=== PATIENT | female | born 1960 | race Caucasian/White ===

== ENCOUNTER 2017-01-30 11:42 | Inpatient (IN) | payer BC ==
[~2017-01-30] VITALS: Ht 170.2 cm; Wt 57.2 kg
[~2017-01-30 11:42] MED LIST: BISHYD2.5 PO; BUSP10 PO; CHLO25 PO; CLON.5; HYDACE5 PO; METO50ER PO; OXYACE5T PO; RAMI5 PO; RXHYDACE PO; RXPROM25 PO; SILSUL1TC TOP; ZIAC; ZOLP10
[2017-01-30 12:50] LABS: Calcium, Ionized (POC) 0.98 mmol/L (1.10-1.46); Chloride (POC) 88 mmol/L (98-108); Creatinine (POC) 3.7 mg/dL (0.6-1.0); Glucose (ISTAT POC) 185 mg/dL (70-99); Hemoglobin (POC) 17.7 g/dL (12.0-16.0); Potassium (POC) 7.5 mmol/L (3.5-5.5); Sodium (POC) 117 mmol/L (135-148); Total CO2 (POC) 21 mmol/L (21-32)
[2017-01-30 12:57] LABS: Hematocrit 44.5 % (33.0-51.0); Mean Corpuscular HGB 30.7 pg (26.0-34.0); Mean Corpuscular Volume 85 fL (80-100); Mean Platelet Volume 9.9 fL (9.1-12.4); Platelet Count 443 K/mm3 (150-400); RDW Coefficient Variation 12.4 % (11.7-14.2); RDW Standard Deviation 38.2 fL (35.1-46.3); Red Blood Cell Count 5.21 M/mm3 (3.80-5.20); White Blood Cell Count 34.55 K/mm3 (4.00-11.30)
[2017-01-30 13:13] LABS: CPK Creatine Kinase 74 U/L (26-193); Ethanol (Alcohol), Blood, Med <3 mg/dL; Magnesium, Blood 3.2 mg/dL (1.6-2.4); Troponin I <0.015 ng/mL (0.000-0.040)
[2017-01-30 13:18] LABS: Alanine Aminotransfer (ALT/SGP 32 U/L (12-78); Albumin, Blood 2.6 g/dL (3.4-5.0); Albumin/Globulin Ratio 0.5 (0.8-1.8); Alk Phos 176 U/L (50-136); Anion Gap 16 mmol/L (6-16); Aspartate Aminotrans (AST/SGOT 29 U/L (12-37); Bilirubin, Total 0.6 mg/dL (0.1-1.0); Blood Urea Nitrogen 131 mg/dL (8-24); Bun/Creatinine Ratio 45.6 (12.0-20.0); CO2, Blood 19 mmol/L (21-32); Calcium, Blood 9.5 mg/dL (8.5-10.1); Chloride, Blood 83 mmol/L (98-108); Creatinine, Blood 2.87 mg/dL (0.40-1.00); Globulin, Blood 5.7 g/dL (2.2-4.0); Glomerular Filtration Rate 18 (60-); Glucose, Blood 183 mg/dL (70-99); Potassium, Blood 6.1 mmol/L (3.5-5.5); Sodium, Blood 118 mmol/L (136-145); Total Protein, Blood 8.3 g/dL (6.4-8.2)
[2017-01-30 13:21] LABS: BAND PERCENT MAN 38 % (0-8); BASOPHILS PERCENT MAN 0 % (0-2); EOSINOPHILS ABSOLUTE MAN 0.34 K/mm3 (0.00-0.68); EOSINOPHILS PERCENT MAN 1 % (0-6); LYMPHOCYTES ABSOLUTE MAN 1.03 K/mm3 (0.84-5.20); LYMPHOCYTES PERCENT MAN 3 % (21-46); MONOCYTES ABSOLUTE MAN 1.72 K/mm3 (0.16-1.47); MONOCYTES PERCENT MAN 5 % (4-13); MYELOCYTE ABSOLUTE MAN 1.72 K/mm3 (0.00-0.00); MYELOCYTE PERCENT MAN 5 % (0-0); NEUTROPHILS ABSOLUTE MAN 29.71 K/mm3 (1.96-9.15); SEG NEUTROPHILS PERCENT MAN 48 % (41-73); TOTAL CELLS COUNTED 100
[2017-01-30 14:10] LABS: Calcium, Ionized (POC) 0.99 mmol/L (1.10-1.46); Chloride (POC) 91 mmol/L (98-108); Creatinine (POC) 3.7 mg/dL (0.6-1.0); Glucose (ISTAT POC) 163 mg/dL (70-99); Hemoglobin (POC) 17.7 g/dL (12.0-16.0); Potassium (POC) 7.1 mmol/L (3.5-5.5); Sodium (POC) 117 mmol/L (135-148); Total CO2 (POC) 21 mmol/L (21-32)
[2017-01-30 14:13] LABS: Source, Urine Clean Catch
[2017-01-30 14:17] LABS: Bilirubin, Urine Neg (Neg); Blood, Urine Neg (Neg); Glucose Qualitative, Urine 4+ (Neg); Ketones, Urine Neg (Neg); Leukocyte Esterase, Urine Neg (Neg); Nitrite, Urine Neg (Neg); Protein, Urine Neg (Neg); Specific Gravity, Urine 1.015 (1.003-1.022); Urobilinogen, Urine NORM (Normal)
[2017-01-30 14:20] LABS: Appearance, Urine Clear (Clear); Color, Urine Yellow (P-Yellow)
[2017-01-30 15:26] LABS: Bun/Creatinine Ratio 47.7 (12.0-20.0); Calcium, Blood 9.8 mg/dL (8.5-10.1); Creatinine, Blood 2.77 mg/dL (0.40-1.00); Potassium, Blood 6.3 mmol/L (3.5-5.5)
--- NOTE | 2017-01-30 22:34 | NUR ---
ASSUMING CARE RECEIVED PT REPORT AT BEDSIDE FROM WILLIAMS KESSLER PT IS ADMITTED DUE TO ALTERED MENTAL STATUS, AND ALCOHOL WITHDRAWAL. PT IS AROUSABLE AND ABLE TO FOLLOW COMMANDS. PT IS CONFUSED AND HAS VERY POOR SHORT TERM MEMORY AND IS A POOR HISTORIAN. PT IS A NEW ADMIT THAT ARRIVED JUST PROIOR TO SHIFT CHANGE. ADMISSION HX, AND MED REC NOT DONE PT IS UNABLE TO PROVIDE INFORMATION AT THIS TIME. PT HAS EXTENSIVE EXCORIATIONS, SKIN BREAKDOWN AND POSSIBLE PRESSURE ULCERS TO THE BACK, BUTTOCKS, COCCYX, AND BACK OF THE LEGS. PT REPORTS THAT SHE HAS BEEN IN BED DRINKING AND HAS NOT GOTTEN OUT OF BED FOR APPROX 3 WEEKS. PT APPEARS TO BE VERY WEAK AND DECONDITIONED AT THIS TIME. PT STATED THAT SHE WAS ABLE TO MOVE SELF IN BED AND AMBULATE PRIOR TO STAYING IN BED FOR EXTENDED AMOUNT OF TIME. ORDER FOR SILVADINE CREAM RECEIVED. WOUNDS CLEANED AND SILVADINE CREAM APPLIED. MEPILEX DRESSINGS APPLIED TO LEFT ELBOW AND RT FOOT/HEEL/ANKLE. PT HAS AVELAR IN PLACE, PLACED IN THE ER PER REPORT. AVELAR IS CURRENTLY PATENT AND DRAINING CLEAR YELLOW URINE AT THIS TIME. PT HAS A PICC LINE THAT WAS PLACED BY WILLIAMS KESSLER AT THE TIME OF SHIFT CHANGE. PT HAS AN IV IN EACH AC. LEFT AC IV DC'D IT WAS LEAKING. PT RECIEVING NS AT 200ML/HR. RATE CHANGED TO 125ML/HR PER NEW ORDER. ASSUMING CARE OF PT AT THE TIME OF SHIFT REPORT/SHIFT CHANGE AT APPROX 1900. WILL CONTINUE TO MONITOR.
--- NOTE | 2017-01-30 23:30 | NUR ---
DR. KESHAWN LIAO WAS CALLED TO CLARIFY ORDERS FOR PT. DR. LIAO WAS INFORMED OF PT STATUS, CONDITION, AND LABS. RECIEVED ORDERS FOR BMP LAB DRAW TO BE DONE NOW AND ORDERS FOR CMP, CBC, AND LACTIC ACID TO BE DRAWN IN THE AM. DR. LIAO WAS INFORMED THAT PT IS RECEIVING NS AT 125ML/HR. DR. LIAO GAVE INSTRUCTIONS TO CONTINUE FLUIDS AT CURRENT RATE. WILL ENTER RECIEVED ORDERS. WILL CONTINUE TO MONITOR.
[2017-01-31 00:23] LABS: Bun/Creatinine Ratio 58.3 (12.0-20.0); Calcium, Blood 8.2 mg/dL (8.5-10.1); Creatinine, Blood 1.44 mg/dL (0.40-1.00)
--- NOTE | 2017-01-31 02:51 | NUR ---
WOUND CARE PT WAS REPOSITIONED AT THIS TIME. PT SILVADINE WAS REAPPLIED AND WOUND CARE PERFORMED. PT CONTINUES TO HAVE BLOODY DRAINAGE FROM WOUND ACCROS BACK. PT POSITIONED TO RELIEVE PRESSURE TO AREA. PT WAS CLEANED WITH A FULL BED BATH. PT HAIR WAS CLEANED AND COMBED. PT HAIR WAS VERY MATTED AND HAD DEBRIS IN IT. PT HAD A LARGE AMOUNT OF BLACK/BROWN PASTY MATERIAL UNDER HER NAILS. NAIL AREA AND CLEANING PERFORMED. WILL CONITNUE TO MONITOR
[2017-01-31 04:21] LABS: Hematocrit 36.7 % (33.0-51.0); Hemoglobin 12.8 g/dL (11.5-16.0); Mean Corpuscular HGB 30.3 pg (26.0-34.0); Mean Corpuscular HGB Conc 34.9 g/dL (31.5-36.5); Mean Corpuscular Volume 87 fL (80-100); Mean Platelet Volume 9.2 fL (9.1-12.4); Platelet Count 386 K/mm3 (150-400); RDW Coefficient Variation 12.7 % (11.7-14.2); RDW Standard Deviation 40.3 fL (35.1-46.3); Red Blood Cell Count 4.23 M/mm3 (3.80-5.20)
[2017-01-31 04:42] LABS: BAND PERCENT MAN 27 % (0-8); BASOPHILS PERCENT MAN 0 % (0-2); EOSINOPHILS PERCENT MAN 0 % (0-6); LYMPHOCYTES PERCENT MAN 7 % (21-46); METAMYELOCYTE ABSOLUTE MAN 1.22 K/mm3 (0.00-0.00); METAMYELOCYTE PERCENT MAN 5 % (0-0); MONOCYTES ABSOLUTE MAN 1.22 K/mm3 (0.16-1.47); MONOCYTES PERCENT MAN 5 % (4-13); MYELOCYTE ABSOLUTE MAN 1.22 K/mm3 (0.00-0.00); MYELOCYTE PERCENT MAN 5 % (0-0); NEUTROPHILS ABSOLUTE MAN 19.03 K/mm3 (1.96-9.15); SEG NEUTROPHILS PERCENT MAN 51 % (41-73); TOTAL CELLS COUNTED 100
[2017-01-31 04:52] LABS: Alanine Aminotransfer (ALT/SGP 19 U/L (12-78); Albumin, Blood 1.9 g/dL (3.4-5.0); Albumin/Globulin Ratio 0.5 (0.8-1.8); Alk Phos 117 U/L (50-136); Anion Gap 9 mmol/L (6-16); Aspartate Aminotrans (AST/SGOT 22 U/L (12-37); Bilirubin, Total 0.5 mg/dL (0.1-1.0); Blood Urea Nitrogen 66 mg/dL (8-24); Bun/Creatinine Ratio 56.4 (12.0-20.0); CO2, Blood 22 mmol/L (21-32); Calcium, Blood 8.1 mg/dL (8.5-10.1); Chloride, Blood 105 mmol/L (98-108); Creatinine, Blood 1.17 mg/dL (0.40-1.00); Globulin, Blood 4.1 g/dL (2.2-4.0); Glomerular Filtration Rate 51 (60-); Glucose, Blood 95 mg/dL (70-99); Potassium, Blood 3.8 mmol/L (3.5-5.5); Sodium, Blood 136 mmol/L (136-145); Vancomycin, Random 9.4 ug/mL
--- NOTE | 2017-01-31 06:17 | NUR ---
SHIFT SUMMARY NTOE PT HAS HAD WOUND CARE DONE X3 TIMES THROUGH THE SHIFT. EACH TIME SILVADINE CREAM WAS APPLIED TO WOUND COVERING PTS BACK DOWN TO UPPER THIGHS. PT CONTINUES TO HAVE BLOODY DRAINAGE FROM WOUNDS ON BACK. PICTURES OF PT WOUNDS WERE TAKEN AND PLACED IN CHART. PT REMAINS VERY CONFUSED. PT WAS PROVIDED ATIVAN ONCE FOR A CIWA OF 16 AT THE START OF THE SHIFT. PT OTHER CIWA SCORES WERE APPROX 8 AND 9. AFTER INITIAL ASSESSMENT PT WOULD ONLY ANSWER VERY FEW QUESTIONS, AND MOST COMMUNICATION FROM PT WAS PT ASKING FOR ICE CHIPS. PT WAS NOT PROVIDED ANY ICE CHIPS AFTER APPROX 2200 PT BECAME TOO SOMNOLENT. PT CONTINUES ON NS AT 125/HR. AT THIS TIME PT IS CURRENTLY RECIEVING ZOSYN AT 12.5ML/HR A PIGGYBACK. NO CALLS OR VISITORS FOR/CONCERNING PT OVERNIGHT. PT ADMIT HX AND MED REC NOT DONE PT IS CURRENTLY UNABLE TO PROVIDE RELIABLE ANSWERS. PT CONTINUES TO HAVE AVELAR CATH IN PLACE. PT HAS HAD APPROX 1400ML OF URINE OUTPUT. URINE IS CLEAR YELLOW AT THIS TIME. WILL REPORT OFF TO [facility] DAY SHIFT NURSE.
--- NOTE | 2017-01-31 07:15 | NUR ---
Recieved in room reprt from Bryce KRAMER. Patient lying on right side and flat in bed sleeping. She awakens slightly to nocsious stimuli. She has siladene lotion covering wounds on her posterior. See pics of wounds. She is on RA and sats mid to upper 90%'s. She has 16Fr dillon draining to gravity yellow urine.She has 20ga IV RAC dressing intact and site WNL and is SL. She has PICC line in MALCOLM dressing intact and site WNL's infusing NS at 125ml/hr. Plan is to apply Silvadene every other reposition. Will continue to monitor closely and call light within reach of patient.
--- NOTE | 2017-01-31 09:20 | NUR ---
Repositioned patient and applied some touch area to posterior where cream had rubbed off. She still has area's on right side that continue to ooz blood. She remains on RA and sats mid 90%'s Patient never full arouses, but after positioniing she asked for ice chips which she tolerates well. Call light within raech of patient.
--- NOTE | 2017-01-31 11:13 | NUR ---
Cleaned patients posterior and reapplied Silvadene Cream to the complete area from scapula to mid thighs. She has hips to buttocks mary continue to ooz bloods. When cleaning was able to gently remove old skin and dirt. Medicated for dicomfort just after starting. Patient was mildly vocal r/t pain during cleaning and asking for ice chips when done. Patient continues on RA and sats in the mid 90%'s, HR very low 100's. Dressings (mepilex) intact to LE's. Transferring care to Marleni RN.
--- NOTE | 2017-01-31 12:45 | NUR ---
SIGNIFICANT OTHER CAME IN FOR SHORT TIME PTS S.OCharlene VILLALPANDO CAME IN TO CHECK ON HER, BLOOD CONSENT AND RELEASE OF INFO PAPERS SIGNED ALTHOUGH THEY ARE NOT LEGALLY . PT GIVES VERBAL CONSENT FOR HIM TO SIGN PAPERS FOR HER. UPDATED ON PTS CONDITION, AND GIVEN UNIT PHONE NUMBER. HE THEN STATED THAT HE NEEDED TO LEAVE BECAUSE HE HAD ANIMALS IN THE CAR.
--- NOTE | 2017-01-31 14:45 | NUR ---
PT HAD OJ AND VANILLA PUDDING PT WITH HOB UP TO HAVE SOME PO INTAKE, HAD SIPS OF OJ AND APPROX HALF A VANILLA PUDDING. ABOUT 10 MIN AFTER PO INTAKE PT IS MOANING AND STATES SHE IS HAVING CHEST PAIN 8/10. EKG OBTAINED AND IS UNCHANGED. ASKED PT IF IT MAY BE HEARTBURN AND SHE SAYS YES THEN NO. WHEN ASKED AGAIN ABOUT CHEST PAIN, SHE STATES THAT IT IS GONE. PT REPOSITIONED TO OPPOSITE SIDE AND SILVADENE CREAM APPLIED TO WOUNDS ON BACK. STATES ANKLE HURTS BUT AFTER REPOSIONED ON PILLOWS, PAIN IS RESOLVED. DISCUSSED CP AND EKG WITH AND NEW ORDERS FOR MG LEVEL AND TROPONIN.
[2017-01-31 16:44] LABS: Magnesium, Blood 2.8 mg/dL (1.6-2.4); Troponin I 0.023 ng/mL (0.000-0.040)
--- NOTE | 2017-01-31 17:56 | NUR ---
PT HAD CLEAR LIQUID DINNER ASSISTED PT WITH FEEDING, HARD TO UNDERSTAND WHEN SHE TALKS. BP ELEVATED, WILL GIVE PRN HYDRALAZINE. PLAN TO REDO SILVADENE CREAM AND BEDDING AT CHANGE OF SHIFT, WILL GIVE REPORT TO ONCOMING SHIFT.
--- NOTE | 2017-01-31 19:11 | NUR ---
BEDSIDE REPORT WITH AUDREY RN. BOTH RN ASSISTED PT IN ROLLING FROM [id number] FOR WOUND CARE. PT TOLERATED WELL. PT DROWSY AND WEAK BUT TRYING TO FOLLOW COMMANDS, HOWEVER, PT NOT ABLE TO HOLD SELF ON SIDE USING SIDERAIL. LS CLEAR ALTHOUGHT RIGHT SEEMS A LITTLE MORE DIMINISHED THAN LEFT, PARKER, TOSHA. SATS 98% ON RA, HR LOW 100'S. PT LEFT ON RIGHT SIDE USING PILLOW SUPPORT AND ONLY SHEET TO ALLOW WOUNDS OPEN TO AIR. CALL LIGHT WITHIN REACH. PT VISIBLE FROM RN STATION.
--- NOTE | 2017-01-31 21:53 | NUR ---
PT AWAKENED BRIEFLY AFTER TURNING. PT ORIENTED TO PERSON PLACE AND WAS ONLY TWO DAYS OFF ON DATE. PT REQUESTED AND WAS GIVEN OJ, JELLO, AND CHAMOMILE TEA. PT CURRENLTY RESTING WITH EYES CLOSED, VSS.
--- NOTE | 2017-02-01 02:08 | NUR ---
WOUND CARE DONE. WOUND TO BACK CLEANSED WITH WOUND SPRAY, PATTED DRY, SILVADINE CREAM APPLIED, GOWN CHANGED. PT GIVEN SIPS OF OJ AND BITES OF JELLO PER PT REQUEST. PT GIVEN HYDRALAZINE 10mg IVP PER ORDER FOR HTN. WILL CONTINUE TO MONITOR.
[2017-02-01 03:49] LABS: Hemoglobin 10.8 g/dL (11.5-16.0); Mean Corpuscular HGB 30.1 pg (26.0-34.0); Mean Corpuscular HGB Conc 33.8 g/dL (31.5-36.5); Mean Corpuscular Volume 89 fL (80-100); NRBC ABSOLUTE 0.02 K/mm3 (0.00-0.02); NRBC Auto 0.1 /100 WBC (0.0-0.2); Platelet Count 314 K/mm3 (150-400); RDW Coefficient Variation 13.1 % (11.7-14.2); RDW Standard Deviation 42.7 fL (35.1-46.3); Red Blood Cell Count 3.59 M/mm3 (3.80-5.20); White Blood Cell Count 14.91 K/mm3 (4.00-11.30)
[2017-02-01 04:05] LABS: Albumin, Blood 1.7 g/dL (3.4-5.0); Anion Gap 7 mmol/L (6-16); Blood Urea Nitrogen 23 mg/dL (8-24); Bun/Creatinine Ratio 34.9 (12.0-20.0); CO2, Blood 23 mmol/L (21-32); Calcium, Blood 7.9 mg/dL (8.5-10.1); Chloride, Blood 113 mmol/L (98-108); Creatinine, Blood 0.66 mg/dL (0.40-1.00); Glomerular Filtration Rate >60 (60-); Glucose, Blood 121 mg/dL (70-99); Phosphorus, Blood 1.2 mg/dL (2.5-4.9); Potassium, Blood 3.1 mmol/L (3.5-5.5); Sodium, Blood 143 mmol/L (136-145)
[2017-02-01 04:29] LABS: BAND PERCENT MAN 18 % (0-8); BASOPHILS PERCENT MAN 0 % (0-2); EOSINOPHILS ABSOLUTE MAN 0.14 K/mm3 (0.00-0.68); EOSINOPHILS PERCENT MAN 1 % (0-6); LYMPHOCYTES ABSOLUTE MAN 1.93 K/mm3 (0.84-5.20); LYMPHOCYTES PERCENT MAN 13 % (21-46); METAMYELOCYTE ABSOLUTE MAN 0.44 K/mm3 (0.00-0.00); METAMYELOCYTE PERCENT MAN 3 % (0-0); MONOCYTES ABSOLUTE MAN 1.19 K/mm3 (0.16-1.47); MONOCYTES PERCENT MAN 8 % (4-13); MYELOCYTE ABSOLUTE MAN 0.59 K/mm3 (0.00-0.00); MYELOCYTE PERCENT MAN 4 % (0-0); NEUTROPHILS ABSOLUTE MAN 10.58 K/mm3 (1.96-9.15); SEG NEUTROPHILS PERCENT MAN 53 % (41-73); TOTAL CELLS COUNTED 100
--- NOTE | 2017-02-01 05:32 | NUR ---
PT AWAKENING MORE OFTEN NOW WITH SEVERAL DIFFERENT REQUESTS FOR DRINKS AND JELLO. PT REPEAT REQUESTS [facility] HOLDING THAT PARTICULAR THING IN HER HANDS. PT REMINDED OF WHAT'S IN HER HANDS AND CONTINUES TO REQUEST. PT IS, HOWEVER, REACHING UP TO HER BEDSIDE TABLE AND GRABBING THE DIFFERENT CUPS OF FLUIDS. VSS. PT BEGINNING TO TALK MORE CLEARER.
--- NOTE | 2017-02-01 07:05 | NUR ---
BEDSIDE REPORT TO VICTORIA KRAMER TO ASSUME CARE OF PT AT THIS TIME. PT REPOSITIONED, WOUNDS ASSESSED, GIVEN ANOTHER CUP OF WATER. PT TALKING SENTENCES. VSS.
--- NOTE | 2017-02-01 07:10 | NUR ---
Recieved in room report from Nitin KRAMER. Patient sitting up in bed awake and alert and speech is clear. She is able to communicate her needs. She is on RA and sats in the mid to upper 90%'s. VSS. She has 20ga RW dressing intact and site WNL's and infusting Protonix at 10ml/hr and PowerGlide PRINCESS infusing NS at 75ml/hr. She also has 18ga LFa dressing intact and site WNL's and is SL. She ia afebrile with T 97.8. She has been using bedpan and we will be getting her up. Will continue to monitor closely and call light within reach of patient.
--- NOTE | 2017-02-01 07:30 | NUR ---
Recieved report from Melvina Hernandez. Patient sitting up in bed on her right side after her repositioning herself more to her back. He is able to state date and name. She is on RA and sats mid to upper 90%'s. Her speech is coars and is very slow to respond. She is very tremulous while awake and tolerated ice water. VSS. Re applied some Silvadene on her back to arear's that rubbed off. Will continue to monitor and call light within reach.
[2017-02-01 09:29] LABS: Vancomycin, Trough 11.1 ug/mL (5.0-10.0)
--- NOTE | 2017-02-01 09:30 | NUR ---
Patient was up to bathroom with SBA and was stable. She denied any dizziness. Patient remians on RA and sats in the mid to upper 90%'s. No significant changes in VS or condition.
--- NOTE | 2017-02-01 09:30 | NUR ---
Repositioned patient and she was slightly painful on movement and relaxed shortly after positioning, she repositioned self from side to back quickly after and pillows supporting. She has been able to holds ice water and drink from straw but consistently takes cover off and drinks water and then dumps ice in bed or eats ice with fingers. She has also been eating chocolat pudding if you feed her, she is too tremulous and very poor fine motor movement. VSS. She remians on RA with sats in the 90%'s. She will be transfering to PCU bed 9.
--- NOTE | 2017-02-01 11:50 | NUR ---
Received the patient shortly after 11 am to PCU room 9. She is lying on her right side, bedside report given to me by Martin Hinton RN. He states that she was just medicated with fentanyl for linen change, application of skin ointment, and repositioning prior to her transfer to PCU. She is asleep, does not open her eyes spontaneously, but only to verbal stimulation, and she is lethargic. Oriented at this time only to person and to following simple directions, but falls asleep right away. Respirations are even and unlabored, vital signs taken and noted stable. IVfluids infusing via RUE PICC line, triple lumen. When awakened, she asks for a drink of water, but is too sleepy to drink at this time.
--- NOTE | 2017-02-01 12:03 | NUR ---
Patient transfered to PCU. Back Cleaned and transfered to PCU bed and applied new Silvadene cream. Transfered pumps and chart and she had no belongings. gave report to ANJEL and Alexa.
--- NOTE | 2017-02-01 18:06 | NUR ---
SUMMARY Received the pt from ICU today around 11 am. The pt has been lethargic for most of the remainder of the shift, except for brief periods when she stays awake to be fed some jello, pudding, or drink ice water. Her CIWA score has been 4 at the highest today, primarily due to tremors. Skin care and repositioning done every 2 hours. The pt told me today that at home she had wet the bed but had been too weak to get up, and as she was home alone, she had to lie in the urine for "a long time". Her skin is excoriated the mid back all the way to her posterior upper thighs, but the area which is the worst is her buttocks. Her skin weeps blood at times from the buttock area and she states it is very painful when she is turned or when skin cream is applied to the wounds. A man who identified himself as her was here briefly at 1330, and left after a few minutes, stating that he would return tomorrow. He said that the pt would probably be sleeping most of the time, since "she usually does that when she is like this".
--- NOTE | 2017-02-01 21:00 | NUR ---
SLEEPING SOUNDLY AND AROUSED FOR TURNING. SEE P.I. FOR SOME OF CARE. DUE TO APPLY UNGT ON W/ EACH TURN THIS WILL PROVIDE EASE AND COMFORT IN MUCH NON STICK POSSIBLE. MOSTLY MODERATE [id number] BLOOD OOZE ON PADS . PAINFUL W/ ALL TURNING AND ENC TO HAVE ACTIVE ROM AT ALL TIMES AND ASSIST MUCH POSS. ATE POP SICLE PER SELF. AWAKE ENOUGH AND ASP PRECAUTIONS TAKEN. ASSISTED MORE W/ ICE CREAM, NO REPORT OF GI DISTRESS. BACK TO SLEEP QUICKLY POST TEETH BRUSHED PER SELF. NO MOVING OF EXTREMITIES UNLESS DIRECTED TO DO SO. THEN FAIR EFFORT. ENC TO C/DB FREQ/ STATES HER IS AT HOME VACUUMING. A LITTLE FORGETFUL NOW BUT EASILY REORIENTED . ARMS OUT PER REQUEST AND NOTED TREMOROUS HANDS AND ARMS.
--- NOTE | 2017-02-02 05:30 | NUR ---
FENTENYL GIVEN AT 0020 AND GOOD RESULTS FOR NEXT TURNING AND SILVADENE APPLICATION. PAINFUL TO TURN THEN FALLS OFF TO SLEEP QUICKLY, VERY MILD TREMORS IF ARMS HELD OUT. BUT THEM STILL COMFORTABLE AND BACK TO SLEEP. FLUIDS OFFERED. AND ASSISTED W/ A LITTLE FORGETFUL BUT ORIENTED EASILY . THEN APPROPRIATE CONVERSING. BACK SIDE OOZE W/ SOME BLEEDING AND YELLOW SECRETIONS.
[2017-02-02 06:21] LABS: Hematocrit 28.9 % (33.0-51.0); Hemoglobin 9.6 g/dL (11.5-16.0); Mean Corpuscular HGB 29.7 pg (26.0-34.0); Mean Corpuscular HGB Conc 33.2 g/dL (31.5-36.5); Mean Corpuscular Volume 90 fL (80-100); Mean Platelet Volume 8.7 fL (9.1-12.4); Platelet Count 279 K/mm3 (150-400); RDW Coefficient Variation 13.1 % (11.7-14.2); RDW Standard Deviation 42.8 fL (35.1-46.3); Red Blood Cell Count 3.23 M/mm3 (3.80-5.20); White Blood Cell Count 11.03 K/mm3 (4.00-11.30)
[2017-02-02 06:35] LABS: Albumin, Blood 1.7 g/dL (3.4-5.0); Anion Gap 9 mmol/L (6-16); Blood Urea Nitrogen 12 mg/dL (8-24); Bun/Creatinine Ratio 20.2 (12.0-20.0); CO2, Blood 23 mmol/L (21-32); Calcium, Blood 7.7 mg/dL (8.5-10.1); Chloride, Blood 104 mmol/L (98-108); Creatinine, Blood 0.59 mg/dL (0.40-1.00); Glomerular Filtration Rate >60 (60-); Glucose, Blood 79 mg/dL (70-99); Phosphorus, Blood 2.6 mg/dL (2.5-4.9); Potassium, Blood 3.4 mmol/L (3.5-5.5); Sodium, Blood 136 mmol/L (136-145)
[2017-02-02 07:01] LABS: BAND PERCENT MAN 6 % (0-8); BASOPHILS PERCENT MAN 0 % (0-2); EOSINOPHILS ABSOLUTE MAN 0.11 K/mm3 (0.00-0.68); EOSINOPHILS PERCENT MAN 1 % (0-6); LYMPHOCYTES ABSOLUTE MAN 0.66 K/mm3 (0.84-5.20); LYMPHOCYTES PERCENT MAN 6 % (21-46); METAMYELOCYTE ABSOLUTE MAN 0.44 K/mm3 (0.00-0.00); METAMYELOCYTE PERCENT MAN 4 % (0-0); MONOCYTES ABSOLUTE MAN 0.44 K/mm3 (0.16-1.47); MONOCYTES PERCENT MAN 4 % (4-13); MYELOCYTE ABSOLUTE MAN 0.44 K/mm3 (0.00-0.00); MYELOCYTE PERCENT MAN 4 % (0-0); NEUTROPHILS ABSOLUTE MAN 8.93 K/mm3 (1.96-9.15); SEG NEUTROPHILS PERCENT MAN 75 % (41-73); TOTAL CELLS COUNTED 100
--- NOTE | 2017-02-02 11:45 | NUR ---
While the pt was being assisted with repositioning, loretta care and wound care, she asked where her earrings were. Ana Zamora was assisting me with the pt care. The pt stated that she bought the faye earrings for herself for $3000 from [employer], in [place], and that "I never take them out, except to clean them." She states she does not know what happened to them, but she is not wearing them right now. When the pt arrived yesterday from ICU to me, she was not wearing any earrings.
--- NOTE | 2017-02-02 15:04 | NUR ---
The pt's is here with the pt. He is asking where her earrings are. He states that she was wearing them yesterday when she was in PCU. I told him that I was here yesterday, and did not see any earrings on her ears. He then said that she was wearing them "in the other room", but he wasn't sure if that was ICU or ED. He then said that they took them out when she went for an XRAY, but he states he is sure that she had them on when she came to the hospital from home. The pt's states that the earrings are "three quarters karat faye stud earrings with gold posts and screw-on backs." Pt advocate Nahed was contacted as we have no belongings in the pt's room. I spoke with the ICU deputy jailer to ask if there are any earrings of that description in ICU. Now the pt is stating that the earrings were taken off when she went for an Xray.
--- NOTE | 2017-02-02 15:52 | NUR ---
I spoke with MARTHA Macdonald in ICU. Martin Hinton, who had the patient yesterday, also reports that the pt was not wearing any earrings yesterday during his care, nor was the patient wearing any earrings when he cared for her on January 30. The staff air defense officer who cleaned ICU 14 yesterday after the patients departure and transfer to PCU state that they did not find any belongings, including jewelry, in the room when it was cleaned.
--- NOTE | 2017-02-02 17:50 | NUR ---
Pt was transferred in bed to SCU medical floor, with telemetry, following telephone report to WILLIAMS Osborne.
--- NOTE | 2017-02-02 17:57 | NUR ---
PT TRANSFERRED TO ROOM 348. INCONTINENT OF STOOL. CREAM PLACED TO BACK, BUTTOCKS, THIGH AREA AFTER HYGIENE CARE PROVIDED. PT CONTINUE TO HAVE PAIN (SEE EMAR). ORIENTED TO ROOM AND STAFF.
--- NOTE | 2017-02-03 05:21 | NUR ---
SHIFT SUMMARY: PT IS ALERT AND ORIENTED. PT IS COOPERATIVE. PT CALLS APPROPRIATELY. PT REPORTS PAINFUL SKIN ALONG HER BACKSIDE, MEDICATING PER EMAR. PT REPORTS HEARTBURN, CALLED DR. LIPSCOMB AND GOT AN ORDER FOR MAALOX PRN. PT SLEPT FOR MUCH OF THE SHIFT WHEN NOT DISTURBED. PT DENIES NAUSEA AND VOMITNG. PT TOLERATING FULL LIQUIDS THROUGHOUT THE SHIFT. NO ACUTE CHANGES OR COMPLICATIONS OVERNIGHT. BED IN LOW POSITION, CALL LIGHT WITHIN REACH.
[2017-02-03 09:00] LABS: Hematocrit 28.6 % (33.0-51.0); Hemoglobin 9.7 g/dL (11.5-16.0); Mean Corpuscular HGB 29.7 pg (26.0-34.0); Mean Corpuscular HGB Conc 33.9 g/dL (31.5-36.5); Mean Corpuscular Volume 88 fL (80-100); Mean Platelet Volume 8.7 fL (9.1-12.4); Platelet Count 253 K/mm3 (150-400); RDW Coefficient Variation 12.7 % (11.7-14.2); RDW Standard Deviation 40.9 fL (35.1-46.3); Red Blood Cell Count 3.27 M/mm3 (3.80-5.20); White Blood Cell Count 9.07 K/mm3 (4.00-11.30)
[2017-02-03 09:22] LABS: Vancomycin, Trough 10.5 ug/mL (5.0-10.0)
[2017-02-03 09:23] LABS: Anion Gap 8 mmol/L (6-16); Blood Urea Nitrogen 6 mg/dL (8-24); Bun/Creatinine Ratio 13.3 (12.0-20.0); CO2, Blood 25 mmol/L (21-32); Calcium, Blood 7.7 mg/dL (8.5-10.1); Chloride, Blood 104 mmol/L (98-108); Creatinine, Blood 0.45 mg/dL (0.40-1.00); Glomerular Filtration Rate >60 (60-); Glucose, Blood 77 mg/dL (70-99); Potassium, Blood 3.1 mmol/L (3.5-5.5); Sodium, Blood 137 mmol/L (136-145)
--- NOTE | 2017-02-03 14:52 | NUR ---
Met pt. lying in bed a little unhappy, provided pt. with both spiritual and emotional support, prayed and blessed pt.
--- NOTE | 2017-02-03 16:12 | NUR ---
PATIENT ADVANCED TO REGULAR DIET TODAY AND TOLERATED WELL. PAINFUL WITH REPOSITIONING AND ACTIVITY, FENTANYL D/C'D AND NORCO BEING USED TO TREAT PAIN. NSR ON TELE, PATIENT DENIES ANY CHEST PAIN. LUNGS CLEAR, MAINTAINING SATS ON RA. WORKED WITH PT/OT THIS SHIFT. WAS ABLE TO STAND AT SIDE OF BED, UNABLE TO SIT IN CHAIR. AVELAR TO GRAVITY AND NOT REMOVED DUE TO EXCORIATED SKIN AND INABILITY TO GET OUT OF BED. SILVADENE CREAM APPLIED TO SKIN BREAKDOWN ON BACK,BUTTOCKS AND BACK OF THIGHS. PATIENT A/O X4, CALM AND COOPERATIVE WITH CARE. K+ 3.1 AND WAS REPLACED.
--- NOTE | 2017-02-04 03:52 | NUR ---
SHIFT SUMMARY PT HAS BEEN AWAKE MOST OF SHIFT. NAPPING ONLY BREIFLY AT TIMES, AFTER BEING MEDICATED FOR PAIN. PT HAS BEEN INCONTINENT OF STOOL X2 THIS SHIFT. PT CALLS OUT AFTER INCONTINENCE, TO BE CLEANED UP. GOWN AND LINENS CHANGED EACH TIME. SM AMT OF BLOODY FLUID DRAINAGE ON PADS UNDER PT. PT HAS C/O OF "HEART BURN" AND BURNING FROM THROAT TO UPPER ABD, WHEN TAKING MEDICATIONS, EATING, OR DRINKING. MAALOX GIVEN AT HS, BUT PT REPORTS THAT IT "DOESN'T LAST". PROTONIX TO BE GIVEN THIS AM. PT ABLE TO USE BED CONTROLS AND CALL LT. AVELAR TO GRAVITY; PATENT. SKIN REMAINS VERY EXCORIATED. WILL CONTINUE TO MONITOR.
[2017-02-04 06:02] LABS: Magnesium, Blood 1.9 mg/dL (1.6-2.4)
[2017-02-04 06:08] LABS: Albumin, Blood 1.8 g/dL (3.4-5.0); Anion Gap 7 mmol/L (6-16); Blood Urea Nitrogen 6 mg/dL (8-24); Bun/Creatinine Ratio 13.5 (12.0-20.0); CO2, Blood 28 mmol/L (21-32); Chloride, Blood 103 mmol/L (98-108); Creatinine, Blood 0.44 mg/dL (0.40-1.00); Glomerular Filtration Rate >60 (60-); Glucose, Blood 85 mg/dL (70-99); Potassium, Blood 3.7 mmol/L (3.5-5.5); Sodium, Blood 138 mmol/L (136-145)
--- NOTE | 2017-02-04 12:42 | NUR ---
SITTING UP IN BED EATING LUNCH; DENIES ANY DISTRESS OR PAIN AT THIS TIME.
--- NOTE | 2017-02-04 13:07 | NUR ---
Met pt. seated up om her bed and is doing much better today ,prayed and blessed pt.
--- NOTE | 2017-02-04 17:28 | NUR ---
SHIFT SUMMARY PATIENT AWAKE, ALERT C/O BACK PAIN FROM EXCORIATED LARGE RASH TO BACK FROM LYING IN BED FOR SEVERAL DAYS; TOPICAL MEDS APPLIED TWICE TODAY; PATIENT SAT UP ON EDGE OF BED FOR MEALS AND ADDITIONALLY SAT UP FOR ABOUT 2 HOURS TOTAL TODAY (AN IMPROVEMENT FROM YESTERDAY); AVELAR DRAINING CLEAR YELLOW URINE; ASKING FOR BED CARRASCO APPROPRIATELY; SMALL BOWEL MOVEMENT X2 TODAY. SPOUSE VISITED FOR ABOUT AN HOUR. PAIN MEDS GIVEN FOR BACK PAIN. EATING AND DRINKING VERY WELL. A AND OX4.
--- NOTE | 2017-02-04 19:25 | NUR ---
RECEIVED REPORT FROM WILLIAMS FREEMAN. PT SITTING ON SIDE OF BED EATING DINNER. RESP E/U ON RA. WILL MONITOR AND PROVIDE CARE T/O SHIFT. CALL LT IN REACH. AVELAR PATENT AND DRAINING YELLOW URINE.
--- NOTE | 2017-02-04 20:33 | NUR ---
CREAMED PT'S BACK, BUTTOCKS, AND UPPER THIGHS WITH SCHEDULED CREAM. SKIN IS RED, EXCORIATED, WITH SEROSANGUINEOUS DRAINAGE. AVELAR CATHETER DRAINING CLEAR YELLOW URINE. CALL LT IN REACH.
--- NOTE | 2017-02-05 02:04 | NUR ---
PT AWAKE WATCHING TV. NO NEEDS AT THIS TIME. CALL LT IN REACH.
--- NOTE | 2017-02-05 04:10 | NUR ---
SHIFT SUMMARY: MEDICATED PT ONCE FOR 8 BACKSIDE PAIN. PT MOSTLY HAS PAIN DURING MOVEMENT. CREAM APPLIED TO BACKSIDE. SKIN IS STILL RED, AND EXCORIATED. AVELAR PATENT AND DRAINING CLEAR YELLOW URINE. NO BOWEL MOVEMENT DURING SHIFT. ON RA. ALERT AND ORIENTED, USING CALL LT APPROPRIATELY. WILL CONTINUE TO MONITOR AND PROVIDE CARE UNTIL SHIFT REPORT TO ONCOMING NURSE.
[2017-02-05 08:12] LABS: Hematocrit 28.8 % (33.0-51.0); Hemoglobin 9.6 g/dL (11.5-16.0); Mean Corpuscular HGB 29.4 pg (26.0-34.0); Mean Corpuscular HGB Conc 33.3 g/dL (31.5-36.5); Mean Corpuscular Volume 88 fL (80-100); Mean Platelet Volume 8.4 fL (9.1-12.4); Platelet Count 259 K/mm3 (150-400); RDW Coefficient Variation 12.9 % (11.7-14.2); RDW Standard Deviation 41.6 fL (35.1-46.3); Red Blood Cell Count 3.26 M/mm3 (3.80-5.20); White Blood Cell Count 8.27 K/mm3 (4.00-11.30)
[2017-02-05 08:31] LABS: Vancomycin, Trough 7.9 ug/mL (5.0-10.0)
[2017-02-05 08:40] LABS: Albumin, Blood 1.9 g/dL (3.4-5.0); Anion Gap 7 mmol/L (6-16); Blood Urea Nitrogen 6 mg/dL (8-24); Bun/Creatinine Ratio 13.9 (12.0-20.0); CO2, Blood 27 mmol/L (21-32); Calcium, Blood 8.2 mg/dL (8.5-10.1); Chloride, Blood 102 mmol/L (98-108); Creatinine, Blood 0.43 mg/dL (0.40-1.00); Glomerular Filtration Rate >60 (60-); Glucose, Blood 81 mg/dL (70-99); Phosphorus, Blood 3.3 mg/dL (2.5-4.9); Potassium, Blood 3.6 mmol/L (3.5-5.5); Sodium, Blood 136 mmol/L (136-145)
[2017-02-05] MEDS ORDERED: ALUM-MAG HYDRO360 ML PO (10:31)
[2017-02-05] MEDS ORDERED: Juven1 EACH PO (10:31)
[2017-02-05] MEDS ORDERED: Silvadene20 GM TOP (10:32)
[2017-02-05] MEDS ORDERED: PANT40 PO (10:32)
[2017-02-05] MEDS ORDERED: HYDR1TAB94 PO (10:32)
[2017-02-05] MEDS ORDERED: LEVFLO500 PO (10:33)
--- NOTE | 2017-02-05 15:10 | NUR ---
t sitting up for her meal, she repots will be going to Rehab today or travis'prayed for the pt. .
--- NOTE | 2017-02-05 15:26 | NUR ---
1522 PT DISCHARGED TO [facility] VIA [facility] TRANSPORT. PICC LINE REMOVED BY BANDER AND CELLOPHANER HELPER MACHINE. POSTERIOR BACK, BUTTOCKS, AND THIGHS CLEANSED AND SILVADENE CREAM APPLIED THIS AM. PAIN MANAGED WITH PRN NORCO. REPORT CALLED TO JEISON AT [facility] AT THIS TIME. AT BEDSIDE AT TIME OF D/C.
== END 2017-02-05 15:17 | DRG 871 ==
LOC: ER 11:42 → ICUW 16:38 → PCU 16:38 → MEDS 16:38 → ICUW 18:25 → PCU 02-01 11:06 → MEDS 02-02 17:25 → ENPENDDIS 02-05 12:00 → MEDS 02-05 15:17
PROVIDERS: Emergency Medicine; Internal Medicine; Pharmacist; ADMIT Family Medicine
PROC: 02HV33Z Insertion of Infusion Device into Superior Vena Cava, Percutaneous Approach (ICD-10-PCS; principal; 2017-01-30)
PROC: B548ZZA Ultrasonography of Superior Vena Cava, Guidance (ICD-10-PCS; 2017-01-30)
DX: A41.9 Sepsis, unspecified organism (principal); G92 Toxic encephalopathy; L89.302 Pressure ulcer of unspecified buttock, stage 2; L89.132 Pressure ulcer of right lower back, stage 2; N17.9 Acute kidney failure, unspecified; E87.2 Acidosis; E83.39 Other disorders of phosphorus metabolism; D62 Acute posthemorrhagic anemia; L89.142 Pressure ulcer of left lower back, stage 2; L89.152 Pressure ulcer of sacral region, stage 2; L89.42 Pressure ulcer of contiguous site of back, buttock and hip, stage 2; E87.1 Hypo-osmolality and hyponatremia; L89.029 Pressure ulcer of left elbow, unspecified stage; L89.519 Pressure ulcer of right ankle, unspecified stage; B95.8 Unspecified staphylococcus as the cause of diseases classified elsewhere; F10.10 Alcohol abuse, uncomplicated; K21.9 Gastro-esophageal reflux disease without esophagitis; I10 Essential (primary) hypertension; R65.20 Severe sepsis without septic shock; E87.6 Hypokalemia; D63.8 Anemia in other chronic diseases classified elsewhere; F17.210 Nicotine dependence, cigarettes, uncomplicated; Z79.899 Other long term (current) drug therapy
CPT/HCPCS: 36415; 36569; 51702; 70450; 71010; 80047; 80048; 80053; 80069; 80202; 81003; 82550; 82800; 82947; 83605; 83690; 83735; 84484; 85014; 85025; 85027; 87040; 87070; 87075; 87077; 87186; 87205; 87493; 93005; 93010; 96365; 96366; 96367; 96368; 96375; 97110; 97162; 97166; 97530; 97535; 99285; C1751; G0480; G8978; G8979; G8987; G8988; J0360; J1815; J1956; J2060; J2405; J2543; J3010; J3370; J3411; J3475; J7030; J7042; J7050; J7060

== ENCOUNTER 2020-09-30 10:30 | Inpatient (IN) | payer BC ==
[~2020-09-30] VITALS: Ht 177.8 cm; Wt 76.3 kg
[~2020-09-30 10:30] MED LIST changes: +ALUM-MAG HYDRO360 ML PO; +HYDR1TAB94 PO; +Juven1 EACH PO; +LEVFLO500 PO; +PANT40 PO; +Silvadene20 GM TOP
[2020-09-30 11:53] LABS: BASOPHILS ABSOLUTE AUTO 0.02 K/mm3 (0.00-0.23); BASOPHILS PERCENT AUTO 0 % (0-2); EOSINOPHILS PERCENT AUTO 0 % (0-6); Hematocrit 32.3 % (33.0-51.0); Hemoglobin 11.5 g/dL (11.5-16.0); IMMATURE GRAN PERCENT AUTO 1 % (0-1); LYMPHOCYTES ABSOLUTE AUTO 0.18 K/mm3 (0.84-5.20); LYMPHOCYTES PERCENT AUTO 2 % (21-46); MONOCYTES ABSOLUTE AUTO 0.54 K/mm3 (0.16-1.47); MONOCYTES PERCENT AUTO 6 % (4-13); Mean Corpuscular HGB 29.3 pg (26.0-34.0); Mean Corpuscular HGB Conc 35.6 g/dL (31.5-36.5); Mean Corpuscular Volume 82 fL (80-100); Mean Platelet Volume 10.1 fL (9.1-12.4); NEUTROPHILS ABSOLUTE AUTO 8.48 K/mm3 (1.96-9.15); NEUTROPHILS PERCENT AUTO 91 % (41-73); Platelet Count 146 K/mm3 (150-400); RDW Coefficient Variation 13.7 % (11.7-14.2); RDW Standard Deviation 40.7 fL (35.1-46.3); Red Blood Cell Count 3.92 M/mm3 (3.80-5.20); White Blood Cell Count 9.32 K/mm3 (4.00-11.30)
[2020-09-30 12:10] LABS: International Normalized Ratio 0.95; Prothrombin Time Results 10.3 Sec (9.7-11.5)
[2020-09-30 12:42] LABS: Alanine Aminotransfer (ALT/SGP 64 U/L (12-78); Albumin, Blood 2.7 g/dL (3.4-5.0); Albumin/Globulin Ratio 0.7 (0.8-1.8); Alk Phos 95 U/L (50-136); Anion Gap 14 mmol/L (6-16); Aspartate Aminotrans (AST/SGOT 133 U/L (12-37); Blood Urea Nitrogen 6 mg/dL (8-24); Bun/Creatinine Ratio 16.6 (12.0-20.0); CO2, Blood 25 mmol/L (21-32); Calcium, Blood 8.4 mg/dL (8.5-10.1); Chloride, Blood 80 mmol/L (98-108); Creatinine, Blood 0.36 mg/dL (0.40-1.00); Glomerular Filtration Rate >60 (60-); Glucose, Blood 231 mg/dL (70-99); Potassium, Blood 3.4 mmol/L (3.5-5.5); Sodium, Blood 119 mmol/L (136-145); Total Protein, Blood 6.7 g/dL (6.4-8.2)
[2020-09-30] MEDS ORDERED: ALMACONE PO (14:41)
[2020-09-30] MEDS ORDERED: JUVEN PACKET1 EAC3 PO (14:42)
[2020-09-30] MEDS ORDERED: METO50ER PO (14:43)
[2020-09-30] MEDS ORDERED: PANT40 PO (14:44)
[2020-09-30] MEDS ORDERED: SILVER SULFADIAZINE 1% TOP (14:45)
[2020-09-30 15:44] LABS: Creatine Kinase MB 8.7 ng/mL (0.0-3.6)
[2020-09-30 15:46] LABS: Creatine Kinase MB Index 0.8 (0.0-4.0)
[2020-09-30] MEDS ORDERED: OXYC5 (18:07)
--- NOTE | 2020-09-30 18:34 | NUR ---
PT ADMITTED TO ROOM PCU 11. PT IS A/O AT THIS TIME, VERY PAINFUL. MEDICATED PER ORDERS. BEDBATH GIVEN TO PT, LINENS CHANGE, WOUND CARE PROVIDED. PT ORIENTED TO ROOM AND CALL LIGHT. TELE IN PLACE.
--- NOTE | 2020-09-30 20:40 | NUR ---
CALLED SHEA CONTAINER CRANE OPERATOR REGARDING FREQUENT NAUSEA FOR PATIENT. ORDERS PUT INTO EMAR.
[2020-10-01 02:57] LABS: Bilirubin, Urine Neg (Neg); Blood, Urine 2+ (Neg); Glucose Qualitative, Urine 4+ (Neg); Ketones, Urine 2+ (Neg); Leukocyte Esterase, Urine 1+ (Neg); Nitrite, Urine Neg (Neg); Protein, Urine 2+ (Neg); Specific Gravity, Urine 1.015 (1.003-1.022); Urobilinogen, Urine NORM (Normal)
[2020-10-01 03:17] LABS: U Amphetamine Screen Not Detected; U Barbituate Screen Not Detected; U Benzodiazapine Screen DETECTED; U Buprenorphine Screen Not Detected; U Cannabinoids Screen Not Detected; U Cocaine Screen Not Detected; U Methadone Screen Not Detected; U Methamphetamine Screen Not Detected; U Opiates Screen DETECTED; U Oxycodone Screen Not Detected; U Phencyclidine Screen Not Detected; U Propoxyphene Screen Not Detected
[2020-10-01 03:18] LABS: Color, Urine Yellow (P-Yellow)
[2020-10-01 03:19] LABS: Appearance, Urine Hazy (Clear); Bacteria Mod /hpf; Squamous Epithelial Cells Mod /hpf (Few); White Blood Cells, Urine 25-50 /hpf (0-5)
[2020-10-01 04:32] LABS: BASOPHILS ABSOLUTE AUTO 0.02 K/mm3 (0.00-0.23); BASOPHILS PERCENT AUTO 0 % (0-2); EOSINOPHILS ABSOLUTE AUTO 0.02 K/mm3 (0.00-0.68); EOSINOPHILS PERCENT AUTO 0 % (0-6); Hemoglobin 10.9 g/dL (11.5-16.0); IMMATURE GRAN ABSOLUTE AUTO 0.02 K/mm3 (0.00-0.10); IMMATURE GRAN PERCENT AUTO 0 % (0-1); LYMPHOCYTES ABSOLUTE AUTO 0.46 K/mm3 (0.84-5.20); LYMPHOCYTES PERCENT AUTO 7 % (21-46); MONOCYTES ABSOLUTE AUTO 0.59 K/mm3 (0.16-1.47); MONOCYTES PERCENT AUTO 9 % (4-13); Mean Corpuscular HGB 29.1 pg (26.0-34.0); Mean Corpuscular HGB Conc 35.2 g/dL (31.5-36.5); Mean Corpuscular Volume 83 fL (80-100); Mean Platelet Volume 10.7 fL (9.1-12.4); NEUTROPHILS ABSOLUTE AUTO 5.82 K/mm3 (1.96-9.15); NEUTROPHILS PERCENT AUTO 84 % (41-73); Platelet Count 150 K/mm3 (150-400); RDW Coefficient Variation 13.8 % (11.7-14.2); RDW Standard Deviation 40.9 fL (35.1-46.3); Red Blood Cell Count 3.75 M/mm3 (3.80-5.20); White Blood Cell Count 6.93 K/mm3 (4.00-11.30)
[2020-10-01 04:55] LABS: Alanine Aminotransfer (ALT/SGP 56 U/L (12-78); Albumin, Blood 2.5 g/dL (3.4-5.0); Albumin/Globulin Ratio 0.7 (0.8-1.8); Alk Phos 81 U/L (50-136); Anion Gap 8 mmol/L (6-16); Aspartate Aminotrans (AST/SGOT 100 U/L (12-37); Bilirubin, Total 0.7 mg/dL (0.1-1.0); Blood Urea Nitrogen 6 mg/dL (8-24); Bun/Creatinine Ratio 16.6 (12.0-20.0); CO2, Blood 29 mmol/L (21-32); Calcium, Blood 8.6 mg/dL (8.5-10.1); Chloride, Blood 85 mmol/L (98-108); Creatinine, Blood 0.36 mg/dL (0.40-1.00); Globulin, Blood 3.8 g/dL (2.2-4.0); Glomerular Filtration Rate >60 (60-); Glucose, Blood 111 mg/dL (70-99); Potassium, Blood 2.8 mmol/L (3.5-5.5); Sodium, Blood 122 mmol/L (136-145); Total Protein, Blood 6.3 g/dL (6.4-8.2)
--- NOTE | 2020-10-01 05:57 | NUR ---
SHIFT SUMMARY PT IS ALERT AND VERY FORGETFUL. VITALS HAVE BEEN STABLE AND ON ROOM AIR. PT REPORTS PAIN T/0 BACKSIDE WELL NAUSEA. CIWAS HAVE RANGED AT 6-7. PT YELLS OUT FOR ASSISTANCE. PT IS FORGETFUL AND ASKS SEVERAL TIMES FOR THE SAME THINGS. PT STS THAT ITS HER "FAULT" THAT SHE IS IN THIS SHAPE. REPORTS THAT SHE WENT ON A 2 WEEK DRINKING BINGE AND WOULD NOT GET OUT OF BED AND THE "DIXON" HAPPENED TO HER BACKSIDE. CALL LIGHT IS WITHIN REACH.
[2020-10-01 14:49] LABS: Anion Gap 9 mmol/L (6-16); Blood Urea Nitrogen 5 mg/dL (8-24); Bun/Creatinine Ratio 12.6 (12.0-20.0); CO2, Blood 28 mmol/L (21-32); Calcium, Blood 8.5 mg/dL (8.5-10.1); Chloride, Blood 85 mmol/L (98-108); Glomerular Filtration Rate >60 (60-); Glucose, Blood 160 mg/dL (70-99); Potassium, Blood 2.9 mmol/L (3.5-5.5); Sodium, Blood 122 mmol/L (136-145)
--- NOTE | 2020-10-01 17:37 | NUR ---
SHIFT SUMMARY PT A&Ox3; CALM AND COOPERATIVE WITH CARE. FORGETFUL, ASKING THE SAME QUESTIONS MULTIPLE TIMES. PT QUICKLY FALLS BACK ASLEEP UNLESS WHEN NO LONG STIMULATED. PT RESTING IN BED; REPOSITIONED Q2. PT WILL ASK FOR BEDPAN,BUT IS INCONTINUENT UP WITH OT; MAX 2 PERSON ASSIST PIVOT TRANSFER TO BED THIS EVENING. PT REPORTS 8/10 PAIN T/O SHIFT, MEDICATED x2 DURING SHIFT. PT REPORTS NAUSEA, MEDICATED PER EMAR. PT DENIES SOB, DIZZINESS AND CHEST PAIN. WOUND SCATTERED T/O BODY; BEDBATH AND SILVADENE APPLIED THIS AM. FREE WATER RESTRICTION IN PLACE PER DR GTZ; 500 CC T/O SHIFT. CIWA <8 T/O SHIFT. VSS. NO OTHER ACUTE CHANGES NOTED. WILL CONTINUE TO MONITOR UNTIL REPORT GIVEN TO ONCOMING RN.
[2020-10-01 19:21] LABS: Anion Gap 9 mmol/L (6-16); Blood Urea Nitrogen 7 mg/dL (8-24); Bun/Creatinine Ratio 21.9 (12.0-20.0); CO2, Blood 26 mmol/L (21-32); Calcium, Blood 8.8 mg/dL (8.5-10.1); Chloride, Blood 86 mmol/L (98-108); Creatinine, Blood 0.32 mg/dL (0.40-1.00); Glomerular Filtration Rate >60 (60-); Glucose, Blood 123 mg/dL (70-99); Potassium, Blood 3.4 mmol/L (3.5-5.5); Sodium, Blood 121 mmol/L (136-145)
--- NOTE | 2020-10-01 21:34 | NUR ---
ASSUMED CARE PT IS ALERT AND ORIENTED BUT VERY FORGETFUL. PT HAS BEEN DRY HEAVING AND REPORTS HEARTBURN. PT YELLING OUT FOR ASSITANCE; USES CALL LIGHT OCCASSIONALY. BACKSIDE IS VERY RED, EXCOREATED AND PAINFUL. PT IS A TWO ASSIST FOR TURNING AND REPOSITIONING. DENIES CHEST PAIN. CALL LIGHT WITHIN REACH. WILL CONTINUE TO MONITOR.
[2020-10-02 00:47] LABS: Anion Gap 9 mmol/L (6-16); Blood Urea Nitrogen 5 mg/dL (8-24); CO2, Blood 26 mmol/L (21-32); Calcium, Blood 8.7 mg/dL (8.5-10.1); Chloride, Blood 89 mmol/L (98-108); Creatinine, Blood 0.42 mg/dL (0.40-1.00); Glomerular Filtration Rate >60 (60-); Glucose, Blood 109 mg/dL (70-99); Potassium, Blood 3.4 mmol/L (3.5-5.5); Sodium, Blood 124 mmol/L (136-145)
--- NOTE | 2020-10-02 06:23 | NUR ---
SHIFT SUMMARY PT IS ALERT AND ORIENTED FORGETFUL AT TIMES. PT DENIES CHEST PAIN OR SOB. VITALS ARE STABLE AND IS ON ROOM AIR WITH SATS ABOVE 92%. THERE HAVE BEEN NO ACUTE CHANGES T/O THE NIGHT. PT STARTED NPO AT MIDNIGHT. PT REFUSED USING BEDPAN DESPITE USING IT THE NIGHT BEFORE PT STATED "IT IS EASIER TO PEE MYSELF." THIS AM SHE STARTED CALLING FOR BEDPAN AND TOLERATING IT WELL. PT YELLS OUT FOR ASSISTANCE MOST TIMES INSTEAD OF USING CALL LIGHT. PT HAS BEEN VERY PAINFUL AND DRY HEAVING WITH ANY MOVEMENT. CALL LIGHT IS WITHIN REACH
[2020-10-02 06:51] LABS: Anion Gap 5 mmol/L (6-16); Blood Urea Nitrogen 4 mg/dL (8-24); Bun/Creatinine Ratio 9.6 (12.0-20.0); CO2, Blood 27 mmol/L (21-32); Calcium, Blood 8.4 mg/dL (8.5-10.1); Chloride, Blood 94 mmol/L (98-108); Creatinine, Blood 0.42 mg/dL (0.40-1.00); Glomerular Filtration Rate >60 (60-); Glucose, Blood 93 mg/dL (70-99); Magnesium, Blood 1.9 mg/dL (1.6-2.4); Potassium, Blood 4.2 mmol/L (3.5-5.5); Sodium, Blood 126 mmol/L (136-145)
--- NOTE | 2020-10-02 13:51 | NUR ---
Pt. is lying in bed resting and is doing much better offered prayers for pt.
--- NOTE | 2020-10-02 14:48 | NUR ---
TRANSFER NOTE PT A&Ox3; ANXIOUS AT TIMES, COOPERATIVE WITH CARE. PT CAN BE IRRITBALE WITH STAFF. FORGETFUL, PT ASKS SAME QUESTIONS MULTIPLE TIMES T/O SHIFT. Q2 TURN. PT REPORTS PAIN T/O; MEIDCATED PER EMAR. PT REPORTS NAUSEA, APPEARS TO DRY HEAVE AT TIMES, MEDICATED WITH SCHEDULED AND PRN. PT DENIES CHEST PAIN, SOB AND DIZZINESS. SILVADENE APPLIED THIS AM AFTER BEDBATH TO WOUND SCATTERED T/O; WOUND CLINIC CONSULTED FOR WOUND CARE, FACE SHEET FAXED DOWN THIS AM. PT ELEVATED; NOTIFIED DR GTZ; NEW ORDERS ENTERED; ADMINISTERED HYDALAZINE WITH POSITIVE RESULTS. OTHER VSS. PT WORKING WITH PT/OT DURING SHIFT. NO OTHER ACUTE CHANGES NOTED DURING SHIFT. REPORT GIVEN TO RN ASSUMING CARE OF PATEINT. PT TRANSFERED TO ROOM 340 AT 1420,
--- NOTE | 2020-10-02 16:23 | NUR ---
SHIFT SUMMARY RECEIVED PT TO RM 340 FROM PCU 11. RECEIVED REPORT FROM FLOR KRAMER. PT ADMITTED FOR HYPONATREMIA; IMPROVED FROM ADMIT, BUT STILL BELOW NORMAL. SEE CHART. IVF'S INFUSING PER EMAR. PT BEDBOUND FOR 2 WKS, LYING IN STOOL AND URINE. SKIN VERY EXCORIATED, TOP TO BOTTOM. PER REPORT, PT DRINKING AT LEAST ONE BOTTLE WINE DAILY, SOMETIMES BINGE DRINKING. PT REPORTED THAT HER GIVES IT TO HER. PT'S THINKING IS SLOW WITH SOME CONFUSION. IN TO VISIT THIS AFTERNOON. CALL LT IN REACH.
[2020-10-02 17:30] LABS: Anion Gap 6 mmol/L (6-16); Blood Urea Nitrogen 7 mg/dL (8-24); Bun/Creatinine Ratio 19.8 (12.0-20.0); CO2, Blood 26 mmol/L (21-32); Calcium, Blood 8.6 mg/dL (8.5-10.1); Chloride, Blood 95 mmol/L (98-108); Creatinine, Blood 0.35 mg/dL (0.40-1.00); Glomerular Filtration Rate >60 (60-); Glucose, Blood 140 mg/dL (70-99); Potassium, Blood 3.6 mmol/L (3.5-5.5); Sodium, Blood 127 mmol/L (136-145)
--- NOTE | 2020-10-03 04:25 | NUR ---
SHIFT SUMMARY PATIENT HAD NO ACUTE CHANGES OBSERVED. AXOX 2-3 AND BEDREST. TAKES MEDICATION WHOLE IN APPLE SAUCE. PIV REMAINS INTACT. NS INFUSING PER EMAR. REPORTED NAUSEOUS X ONE AND IV ZOFRAN GIVEN PER EMAR. VSS/AFEBRILE. REPORTED PAIN FROM SKIN LOSS ON BUTTOCK AND IV TORADOL 30 MG GIVEN PER EMAR. CALL LIGHT IN REACH. BED IN LOWEST POSITION. WILL CONTINUE TO MONITOR UNTIL DAY SHIFT NURSE ASSUMES CARE.
[2020-10-03 05:45] LABS: Anion Gap 6 mmol/L (6-16); Blood Urea Nitrogen 10 mg/dL (8-24); Bun/Creatinine Ratio 24.2 (12.0-20.0); CO2, Blood 23 mmol/L (21-32); Calcium, Blood 8.3 mg/dL (8.5-10.1); Chloride, Blood 97 mmol/L (98-108); Creatinine, Blood 0.41 mg/dL (0.40-1.00); Glomerular Filtration Rate >60 (60-); Glucose, Blood 99 mg/dL (70-99); Potassium, Blood 3.8 mmol/L (3.5-5.5); Sodium, Blood 126 mmol/L (136-145)
--- NOTE | 2020-10-03 10:14 | NUR ---
CALLED WOUNDCARE THIS AM FOR BEDSIDE EVAL.
--- NOTE | 2020-10-03 12:52 | NUR ---
WOUND CARE EVALUATED TODAY; KEEP PUTTING SILVADENE CREAM. NO OTHER ORDERS NOTED
[2020-10-03 15:00] LABS: Anion Gap 9 mmol/L (6-16); Blood Urea Nitrogen 12 mg/dL (8-24); Bun/Creatinine Ratio 25.5 (12.0-20.0); CO2, Blood 23 mmol/L (21-32); Calcium, Blood 8.9 mg/dL (8.5-10.1); Chloride, Blood 95 mmol/L (98-108); Creatinine, Blood 0.47 mg/dL (0.40-1.00); Glomerular Filtration Rate >60 (60-); Glucose, Blood 164 mg/dL (70-99); Potassium, Blood 3.5 mmol/L (3.5-5.5); Sodium, Blood 127 mmol/L (136-145)
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
[2020-10-04 09:55] LABS: Anion Gap 8 mmol/L (6-16); Blood Urea Nitrogen 16 mg/dL (8-24); Bun/Creatinine Ratio 39.9 (12.0-20.0); CO2, Blood 24 mmol/L (21-32); Calcium, Blood 9.1 mg/dL (8.5-10.1); Chloride, Blood 95 mmol/L (98-108); Glomerular Filtration Rate >60 (60-); Glucose, Blood 120 mg/dL (70-99); Potassium, Blood 3.3 mmol/L (3.5-5.5); Sodium, Blood 127 mmol/L (136-145)
[2020-10-04 15:10] LABS: Hematocrit 33.1 % (33.0-51.0); Hemoglobin 11.1 g/dL (11.5-16.0); Mean Corpuscular HGB 29.1 pg (26.0-34.0); Mean Corpuscular HGB Conc 33.5 g/dL (31.5-36.5); Mean Corpuscular Volume 87 fL (80-100); Platelet Count 345 K/mm3 (150-400); RDW Coefficient Variation 15.6 % (11.7-14.2); RDW Standard Deviation 48.2 fL (35.1-46.3); Red Blood Cell Count 3.81 M/mm3 (3.80-5.20); White Blood Cell Count 7.71 K/mm3 (4.00-11.30)
[2020-10-04 15:44] LABS: Alanine Aminotransfer (ALT/SGP 48 U/L (12-78); Albumin, Blood 2.7 g/dL (3.4-5.0); Albumin/Globulin Ratio 0.6 (0.8-1.8); Alk Phos 96 U/L (50-136); Anion Gap 7 mmol/L (6-16); Aspartate Aminotrans (AST/SGOT 44 U/L (12-37); Bilirubin, Total 0.7 mg/dL (0.1-1.0); Blood Urea Nitrogen 15 mg/dL (8-24); Bun/Creatinine Ratio 38.4 (12.0-20.0); CO2, Blood 23 mmol/L (21-32); Calcium, Blood 8.9 mg/dL (8.5-10.1); Chloride, Blood 96 mmol/L (98-108); Creatinine, Blood 0.39 mg/dL (0.40-1.00); Globulin, Blood 4.4 g/dL (2.2-4.0); Glomerular Filtration Rate >60 (60-); Glucose, Blood 145 mg/dL (70-99); Potassium, Blood 3.4 mmol/L (3.5-5.5); Sodium, Blood 126 mmol/L (136-145); Total Protein, Blood 7.1 g/dL (6.4-8.2)
[2020-10-04 15:52] LABS: BAND PERCENT MAN 10 % (0-8); BASOPHILS PERCENT MAN 0 % (0-2); EOSINOPHILS PERCENT MAN 0 % (0-6); LYMPHOCYTES ABSOLUTE MAN 0.77 K/mm3 (0.84-5.20); LYMPHOCYTES PERCENT MAN 10 % (21-46); MONOCYTES ABSOLUTE MAN 2.08 K/mm3 (0.16-1.47); MONOCYTES PERCENT MAN 27 % (4-13); MYELOCYTE ABSOLUTE MAN 0.07 K/mm3 (0.00-0.00); MYELOCYTE PERCENT MAN 1 % (0-0); NEUTROPHILS ABSOLUTE MAN 4.78 K/mm3 (1.96-9.15); SEG NEUTROPHILS PERCENT MAN 52 % (41-73); TOTAL CELLS COUNTED 100
--- NOTE | 2020-10-04 19:10 | NUR ---
PATIENT IS ALERT AND ORIENTED. WITH SOME CONFUSION. SHE IS NPO FOR BOWEL REST. C/O NAUSEA, NO VOMITTING THIS SHIFT. ON CONTINUOUS PULSE OX. PURE WICK IS IN PLACE. NS AT 125/HR. ABDOMEN IS DISTENDED, NO BM THIS SHIFT. WILL CONTINUE TO MONITOR
[2020-10-05 06:09] LABS: Anion Gap 7 mmol/L (6-16); Blood Urea Nitrogen 16 mg/dL (8-24); CO2, Blood 23 mmol/L (21-32); Calcium, Blood 8.6 mg/dL (8.5-10.1); Chloride, Blood 99 mmol/L (98-108); Creatinine, Blood 0.47 mg/dL (0.40-1.00); Glomerular Filtration Rate >60 (60-); Glucose, Blood 97 mg/dL (70-99); Potassium, Blood 4.1 mmol/L (3.5-5.5); Sodium, Blood 129 mmol/L (136-145)
--- NOTE | 2020-10-05 06:34 | NUR ---
SHIFT SUMMARY A&O X2-3 THIS SHIFT, MEDICATED 2X FOR C/O CHRONIC BACK PAIN, X2 FOR NAUSEA, HR TACHY (MD AWARE), MEDICATED 1X FOR SBP +160, NG TUBE INSERTED THIS SHIFT, 1750ML BROWN OUTPUT SINCE PLACEMENT, PT APPEARS TO BE RESTING COMFORTABLY @ THIS TIME, CALL LIGHT IN REACH, BED ALARM ACTIVE, WILL CONT TO MONITOR UNTIL REPORT GIVEN TO DAY RN.
--- NOTE | 2020-10-05 17:48 | NUR ---
PATIENT IS ALERT. SHE IS FORGETFUL. SHE HAS SLEPT IN BED MOST OF THE SHIFT. C/O BACK PAIN, MEDICATED PER EMAR. NG TUBE IN PLACE AND DRAINING DARK ORANGE FLUID. SHE HAS BEEN CONTINENT OF URINE THIS SHIFT AND WILL CALL TO USE THE BEDPAN. SHE IS NPO. LR AT 125/HR. WILL CONTINUE TO MONITOR
--- NOTE | 2020-10-06 05:48 | NUR ---
POLYSOMNOGRAPHIC TECHNOLOGIST SUMMARY PT A/O X4. SLEPT WELL TONIGHT. MEDICATED FOR BACK PAIN X1 TONIGHT. HEATING PAD ALSO APPLIED TO BACK. REPOSITIONIONG PROVIDED. PT CONTINUES TO RUN TACHY IN THE 110'S. MEDICATED FOR HIGH HR PER EMAR. NG TUBE IN PLACE AND ON LOW INTERMITTENT SUCTION PER ORDER. VERY MINIMAL OUTPUT OVERNIGHT LESS THAN 50ML'S OF BROWN LIQUID OUTPUT. CALL LIGHT WITHIN REACH, BED ALARM ON, WILL CONTINUE TO MONITOR.
[2020-10-06 05:58] LABS: Anion Gap 7 mmol/L (6-16); Blood Urea Nitrogen 7 mg/dL (8-24); Bun/Creatinine Ratio 16.1 (12.0-20.0); CO2, Blood 23 mmol/L (21-32); Calcium, Blood 7.9 mg/dL (8.5-10.1); Chloride, Blood 106 mmol/L (98-108); Creatinine, Blood 0.44 mg/dL (0.40-1.00); Glomerular Filtration Rate >60 (60-); Glucose, Blood 77 mg/dL (70-99); Potassium, Blood 3.2 mmol/L (3.5-5.5); Sodium, Blood 136 mmol/L (136-145)
--- NOTE | 2020-10-06 12:22 | NUR ---
DR GTZ CALLED AND GAVE ORDERS OVER THE PHONE TO D/C THE THIAMINE AND START THE PATIENT ON LRs @ 150/HR. IVFs STARTED PER ORDERS. K-RIDER RUNNING AT THIS TIME. NEW IV PLACED TO RW.
--- NOTE | 2020-10-06 15:44 | NUR ---
PATIENT HAS BEEN VERY ANXIOUS TODAY, BEGINNING WITH WANTING TO EAT FOLLOWED BY WANTING HER NG TUBE REMOVED. SHE WAS INFORMED BY THE RESIDENT OVER-SEEING HER CARE THAT NEITHER WOULD HAPPEN UNTIL THE SURGEON SAW HER AND SAID IT WAS OK. DR ABURTO DID COME AND CONSULT WITH THE PATIENT AND CLEARED HER TO HAVE THE NG TUBE REMOVED AND TO HAVE CLEAR LIQUIDS AND TO ADVANCE DIET TOLERATED. PATIENT HAD A CLEAR LIQUID LUNCH AND WAS ANXIOUS TO HAVE A "REAL" DINNER. I EXPLAINED THAT SHE HAD TO TAKE IT IN STEPS; SHE WASN'T TOO THRILLED ABOUT THAT ANSWER BUT WENT WITH IT. NG TUBE WAS REMOVED WITHOUT COMPLICATION OR COMPLAINT FROM PATIENT. PATIENT SEEMED TO TOLERATE THE CLEAR LIQUIDS WITHOUT PROBLEM. PATIENT REMAINS WITHOUT ANY S/SX OF ETOH W/D. SHE HAS BEEN BEDBOUND; WHEN PT ATTEMPTED TO GET HER TO STAND UPRIGHT SHE DID-SO BUT NOT EXCITEDLY. SKIN IS RED AND PEELING EVERYWHERE; SILVADENE CREAM APPLIED PER EMAR. PATIENT RECIEVING IVF's PER MD. CALL LIGHT WITHIN REACH.
--- NOTE | 2020-10-06 16:34 | NUR ---
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 HE ASKED THAT I DELIVER THE MESSAGE TO DR GTZ, WHICH I DID VIA TELEPHONE.
--- NOTE | 2020-10-06 19:25 | NUR ---
ASSUMED CARE RECEIVED REPORT FROM WILLIAMS RAY. PT RESTING, IN NAD. NO ACUTE NEEDS ASSESSED AT THIS TIME. CALL LIGHT, POSSESSIONS IN REACH, BED IN LOW AND LOCKED POSITION. IVF INFUSING PER ORDERS.
--- NOTE | 2020-10-07 07:00 | NUR ---
SYRUP SHED SUPERVISOR SUMMARY PT RESTING, IN NAD. SLEPT ON AND OFF T/O NIGHT. COOPERATIVE WITH CARES, CALLS APPROPRIATELY TO MAKE NEEDS KNOWN. VS REVIEWED,WNL. TOLERATING CLEAR LIQUID DIET WELL, REPEATEDLY VOICES THAT SHE'S HUNGRY. VOIDING LARGE AMOUNTS CLEAR YELLOW URINE, NO C/O DYSURIA. SKIN CONTINUES TO PEEL T/O BODY; SILVADENE CREAM APPLIED PER EMAR; MEPILEX INTACT TO WOUNDS ON LT HIP AND LOWER BACK. NO ACUTE NEEDS ASSESSED AT THIS TIME. CALL LIGHT, POSSESSIONS IN REACH, BED IN LOW AND LOCKED POSITION WITH ALARMS ON. REPORT GIVEN TO WILLIAMS RAY.
[2020-10-07 08:41] LABS: BASOPHILS ABSOLUTE AUTO 0.07 K/mm3 (0.00-0.23); BASOPHILS PERCENT AUTO 1 % (0-2); EOSINOPHILS ABSOLUTE AUTO 0.06 K/mm3 (0.00-0.68); EOSINOPHILS PERCENT AUTO 1 % (0-6); Hematocrit 29.5 % (33.0-51.0); Hemoglobin 9.7 g/dL (11.5-16.0); IMMATURE GRAN ABSOLUTE AUTO 0.44 K/mm3 (0.00-0.10); IMMATURE GRAN PERCENT AUTO 6 % (0-1); LYMPHOCYTES PERCENT AUTO 20 % (21-46); MONOCYTES PERCENT AUTO 14 % (4-13); Mean Corpuscular HGB 29.1 pg (26.0-34.0); Mean Corpuscular HGB Conc 32.9 g/dL (31.5-36.5); Mean Corpuscular Volume 89 fL (80-100); Mean Platelet Volume 8.4 fL (9.1-12.4); NEUTROPHILS ABSOLUTE AUTO 3.99 K/mm3 (1.96-9.15); NEUTROPHILS PERCENT AUTO 57 % (41-73); Platelet Count 586 K/mm3 (150-400); RDW Coefficient Variation 16.2 % (11.7-14.2); RDW Standard Deviation 52.8 fL (35.1-46.3); Red Blood Cell Count 3.33 M/mm3 (3.80-5.20); White Blood Cell Count 6.96 K/mm3 (4.00-11.30)
[2020-10-07 09:00] LABS: Anion Gap 5 mmol/L (6-16); Blood Urea Nitrogen 5 mg/dL (8-24); Bun/Creatinine Ratio 12.8 (12.0-20.0); CO2, Blood 27 mmol/L (21-32); Calcium, Blood 8.5 mg/dL (8.5-10.1); Chloride, Blood 104 mmol/L (98-108); Creatinine, Blood 0.39 mg/dL (0.40-1.00); Glomerular Filtration Rate >60 (60-); Glucose, Blood 96 mg/dL (70-99); Potassium, Blood 3.7 mmol/L (3.5-5.5); Sodium, Blood 136 mmol/L (136-145)
--- NOTE | 2020-10-07 15:45 | NUR ---
THE MAIN ISSUE WITH THIS PATIENT TODAY IS TRYING TO MAINTAIN HER BP's. THEY HAVE REMAINED ELEVATED DESPITE SCHEDULED AND PRN ANTIHYPERTENSIVES. PATIENT IS AWARE OF HER NEED TO VOID HOWEVER CONTINUES TO VOID ON SELF SO A PURE WICK WAS PLACED TO HELP KEEP HER PERIAREA DRY. THE PATIENT CALLS OFTEN FOR STAFF ASSIST; SHE LOVES TO EAT AND PER MD HER DIET WILL BE PROGRESSING TO SMALL, BIT-SIZE, WHICH THE PATIENT IS LOOKING FORWARD TO. ASIDE FROM THIS, THERE HAVE BEEN NO ACUTE CHANGES NOTED OR TO REPORT OF AT THIS TIME.
--- NOTE | 2020-10-07 19:00 | NUR ---
ASSUMED CARE RECEIVED REPORT FROM WILLIAMS RAY. PT RESTING, IN NAD. NO ACUTE NEEDS ASSESSED AT THIS TIME. CALL LIGHT, POSSESSIONS IN REACH, BED IN LOW AND LOCKED POSITION.
--- NOTE | 2020-10-08 01:25 | NUR ---
SPOKE TO DR. ROTHMAN REGARDING PT' S ANXIETY. ORDERS RECEIVED.
--- NOTE | 2020-10-08 07:33 | NUR ---
CORONER SUMMARY PT RESTING, IN NAD. STATED SHE HAD DIFFICULTY SLEEPING T/O NIGHT. APPEARED INCREASINGLY ANXIOUS D/T ELEVATED BP'S, MEDICATED ORDERED FOR HTN, PAIN AND ANXIETY, WITH GOOD EFFECT. OTHER VS REVIEWED,WNL; O2 SATS STABLE ON RA. PT DENIES SOB, DYSPNEA. PUREWICK CATHETER TO SUCTION, PATENT AND DRAINING DOROTEO YELLOW URINE. NO OTHER ACUTE CONCERNS TO REPORT OVERNIGHT. DENIES NEEDS AT THIS TIME. CALL LIGHT, POSSESSIONS IN REACH, BED IN LOW AND LOCKED POSITION WITH ALARMS ON. REPORT GIVEN TO WILLIAMS PÉREZ.
[2020-10-08 08:08] LABS: Anion Gap 6 mmol/L (6-16); Blood Urea Nitrogen 5 mg/dL (8-24); CO2, Blood 28 mmol/L (21-32); Calcium, Blood 8.7 mg/dL (8.5-10.1); Chloride, Blood 99 mmol/L (98-108); Creatinine, Blood 0.42 mg/dL (0.40-1.00); Glomerular Filtration Rate >60 (60-); Glucose, Blood 101 mg/dL (70-99); Potassium, Blood 3.6 mmol/L (3.5-5.5); Sodium, Blood 133 mmol/L (136-145)
[2020-10-08 11:29] LABS: Magnesium, Blood 1.5 mg/dL (1.6-2.4); Phosphorus, Blood 4.1 mg/dL (2.5-4.9)
--- NOTE | 2020-10-08 12:44 | NUR ---
Met pt. sitting on a chair resting after a walk with her therapist, pt. reports doing fine encoursgged pt, and offered prayers and spiritualm nsupport.
[2020-10-08] MEDS ORDERED: LOSA50 PO (17:03)
[2020-10-08] MEDS ORDERED: SENN187 PO (17:03)
[2020-10-08] MEDS ORDERED: MULVITA PO (17:07)
[2020-10-08] MEDS ORDERED: SILVADENE20 G1 TOP (17:10)
[2020-10-08] MEDS ORDERED: Norco 5-325 Ta1 EACH PO (17:19)
--- NOTE | 2020-10-08 18:35 | NUR ---
DISCHARGE SUMMARY PATIENT WAS EDUCATED ON DISCHARGE INSTRUCTIONS. PATIENT WAS WHEELED OUT OF ROOM TO PERSONAL AUTOMOBILE. ALERT AND ORIENTED. PATIENTS AND PATIENT UNDERSTOOD DISCHARGE INSTRUCTIONS. PATIENT AMBULATED IN HALLWAY WITH PHYSICAL THERAPY.
== END 2020-10-08 18:31 | disposition home health service (06) | DRG 896 ==
LOC: ER 10:30 → PCU 16:56 → MEDS 16:56 → PCU 17:23 → MEDS 10-02 14:20
PROVIDERS: Emergency Medicine; Family Medicine; Student in an Organized Health Care Education/Training Program; ADMIT Internal Medicine
PROC: HZ2ZZZZ Detoxification Services for Substance Abuse Treatment (ICD-10-PCS; principal; 2020-09-30)
DX: F10.239 Alcohol dependence with withdrawal, unspecified (principal); E43 Unspecified severe protein-calorie malnutrition; G92 Toxic encephalopathy; E87.1 Hypo-osmolality and hyponatremia; E87.2 Acidosis; E51.2 Wernicke's encephalopathy; E46 Unspecified protein-calorie malnutrition; K56.600 Partial intestinal obstruction, unspecified as to cause; K56.0 Paralytic ileus; R73.9 Hyperglycemia, unspecified; F32.9 Major depressive disorder, single episode, unspecified; R21 Rash and other nonspecific skin eruption; E87.6 Hypokalemia; E86.0 Dehydration; E83.39 Other disorders of phosphorus metabolism; I10 Essential (primary) hypertension; K21.9 Gastro-esophageal reflux disease without esophagitis; Z90.49 Acquired absence of other specified parts of digestive tract; Z90.710 Acquired absence of both cervix and uterus; Z87.891 Personal history of nicotine dependence; Z79.899 Other long term (current) drug therapy; Z74.01 Bed confinement status
CPT/HCPCS: 36415; 74176; 80048; 80053; 81001; 82140; 82550; 82553; 83605; 83615; 83690; 83735; 83930; 83935; 84100; 84300; 84443; 85025; 85610; 85730; 87040; 87086; 92526; 92610; 93005; 93010; 93975; 94762; 96361; 96374; 96375; 96376; 97110; 97116; 97162; 97166; 97530; 97535; 99285-25; A9270; C9113; G0480; J0360; J1650; J1885; J2060; J2270; J2405; J2765; J3010; J3411; J3475; J3480; J7030; J7042; J7060; J7120